=== PATIENT | male | born 1965 | race Hispanic/Latino ===

== ENCOUNTER 2023-06-15 03:16 | Emergency (ER) | payer OTHER ==
[~2023-06-15] VITALS: Ht 175.3 cm; Wt 79.4 kg
[2023-06-15] MEDS: ACETAMINOPHEN 325 MG TAB PO ONE (03:53)
[2023-06-15] MEDS: OCTYL 2-CYANOACRYLATE 1 EACH TP SCH (04:39)
[2023-06-15 06:26] VITALS: BP 127/54; PULSE 78; RESP 16; O2SAT 97
[2023-06-15] MEDS ORDERED: IBUP-1493 PO (06:26)
[2023-06-15] MEDS ORDERED: AMOX-427 PO (06:26)
== END 2023-06-15 06:30 | disposition home or self-care (01) ==
LOC: EDH 03:16 → EDBD 03:16 → EDH 06:30
DX: S02.85XA Fracture of orbit, unspecified, initial encounter for closed fracture (principal); Z79.899 Other long term (current) drug therapy; Y08.89XA Assault by other specified means, initial encounter; Y93.89 Activity, other specified; Y92.89 Other specified places as the place of occurrence of the external cause; Y99.8 Other external cause status
CPT/HCPCS: 12011; 70450; 70486; 72125; 73030; 73070